=== PATIENT | male | born 1980 | race Caucasian/White ===

== ENCOUNTER 2018-06-13 09:34 | Outpatient (CLI) | payer BC ==
--- NOTE | 2018-06-13 13:04 | CT ---
CT ABDOMEN AND PELVIS WITHOUT CONTRAST: Comparison: None. History: Right sided plank and abdominal pain for two months. Technique: Multiple contiguous axial images were obtained in a CT of the abdomen and pelvis without c ontrast. Coronal reformats were performed. FINDINGS: There is a small amount of hyperdense material in the fundus of the gallbladder which could represent stones but is nonspecific. There is a 2.2 cm cyst in the liver near the dome. There are nonobstructi ng calcifications in the left kidney measuring up to 5 mm in size. No calcification is seen in either urinary or urinary bladder. The adrenal glands, spleen, and pancreas are unremarkable, although eval uation is limited without IV contrast. No free air, free fluid, or stranding changes are seen in the abdomen or pelvis. The large and small bowel are unremarkable. No abdominal or pelvic lymphadenopathy are seen. The visualized inferior thorax and abdominal wall soft tissues are unremarkable. The bones are unrema rkable. IMPRESSION: 1. Nonobstructing left renal calcifications. 2. Hepatic cysts. 3. Hyperdense material in the gallbladder could potentially represent gallstones. A gallbladder mass is also a possibility. A right upper quadrant abdominal ultrasound is recommended for further evaluat ion. POS: VAN
== END 2018-06-13 09:35 | disposition home or self-care (01) ==
LOC: SCSCT 09:34
PROVIDERS: ATTEND Urology
DX: N20.0 Calculus of kidney (principal); N28.89 Other specified disorders of kidney and ureter; K76.89 Other specified diseases of liver; R93.3 Abnormal findings on diagnostic imaging of other parts of digestive tract
CPT/HCPCS: 74176

== ENCOUNTER 2019-01-06 13:01 | Outpatient (CLI) | payer BC ==
--- NOTE | 2019-01-06 14:04 | ULT ---
ULTRASOUND THYROID: DATE: 01/06/2019 HISTORY: Follow-up thyroid nodule 38-year-old male COMPARISON: Prior ultrasounds of 05/08/2017, 03/30/2014, and 06/26/2012. FINDINGS: This study is: 0.3 cm Right lobe: 5.1 x 1.8 x 1.9 cm Left lobe: 4.8 x 2.6 x 2.4 cm At right lobe mid pole, there are 2 intermediate echogenicity nodules, abutting each other, each appr oximately 0.5 cm unchanged since 2012, and benign. Dominant the left midpole, there is a complex mass measuring 2.2 x 2.0 x 2.2 cm. Although no significant interval increase in size is visualized since 2017, there has been slight, sl ow interval growth since the older ultrasounds. Furthermore, there has been significant interval increase in the solid component, and the nodule is now approximately 75% solid. Furthermore, there paulson s been a significant interval increase in the number of small and tiny echogenic foci, representing calcifications. This is now a highly suspicious lesion. Ultrasound-guided fine-needle aspiration was performed in 2011, but it was indeterminate. Composition: Mixed solid and cystic: 1 point Echogenicity: Isoechoic: 1 point Shape: Wider than tall: 3 points Margin: Smooth: 0 points Echogenic foci: Punctate echogenic foci: 3 points. Total points: 8 TIRADS category 5: Highly suspicious At the left lower pole, there is a 0.9 cm cyst. IMPRESSION: 1.) TIRADS category 5: Highly suspicious 2) complex 2.2 cm mass in the left lobe interpolar region has developed highly suspicious characteris tics for differentiated thyroid cancer. 3) recommend either repeat fine-needle aspiration, ultrasound-guided, or surgical resection. Recommen d ENT consultation.
== END 2019-01-06 13:02 | disposition home or self-care (01) ==
LOC: SCSULT 13:01
PROVIDERS: ATTEND Family Medicine
DX: E04.1 Nontoxic single thyroid nodule (principal)
CPT/HCPCS: 76536

== ENCOUNTER 2019-01-21 10:12 | Observation (INO) | payer BC ==
[2019-01-20 12:16] VITALS: BMI 26.5
[2019-01-21] MEDS ORDERED: Midazolam HCl 2 mg/2 ml Vial ONE (12:40)
[2019-01-21] MEDS ORDERED: Fentanyl 250 MCG/5 ML VIAL ONE (12:40)
[2019-01-21] MEDS ORDERED: Lidocaine 1% w/Epinephrine 1:100K 20 ML VIAL ONE (12:44)
[2019-01-21] MEDS ORDERED: Bacitracin Zinc Ointment 30 gm TUBE ONE (14:10)
[2019-01-21] MEDS ORDERED: Bacitracin Zinc 1 Packet TOP PRN (15:45)
[2019-01-21] MEDS ORDERED: PACU-Morphine 4MG/ML VIAL SLOW IVP PRN (15:47)
[2019-01-21] MEDS ORDERED: HYDROmorphone 2 MG/ML VIAL SLOW IVP PRN (15:47)
[2019-01-21] MEDS ORDERED: Promethazine HCl 25 MG/ML VIAL SLOW IVP PRN (15:47)
[2019-01-21] MEDS ORDERED: Ondansetron HCl/PF 4 MG/2 ML Vial IVP PRN (15:47)
[2019-01-21] MEDS ORDERED: Promethazine HCl 25 MG/ML VIAL IM PRN ×2 (15:47→20:59)
[2019-01-21] MEDS ORDERED: Ondansetron PF 4 MG/2 ML Vial SLOW IVP PRN (15:47)
[2019-01-21] MEDS ORDERED: HYDROcodone/Acetaminophen 5/325 mg Tablet PO PRN (15:48)
[2019-01-21] MEDS ORDERED: Fentanyl 100 MCG/2 ML VIAL ONE ×2 (15:56→16:13)
[2019-01-21] MEDS ORDERED: ceFAZolin 1 GM/D5W 1 GM in Premix Bag 1 BAG IVPB SCH (16:00)
[2019-01-21] MEDS ORDERED: Acetaminophen 325 MG TAB PO PRN (17:28)
[2019-01-21] MEDS: HYDROcodone/Acetaminophen 5/325 mg Tablet PO PRN ×2 (17:54→22:17)
[2019-01-21] MEDS: Calcium Carbonate 500 MG TAB PO SCH (17:54)
[2019-01-21] MEDS: Sodium Chloride 0.45% 1,000 ML IV SCH (17:55)
[2019-01-21] MEDS ORDERED: Ketorolac Tromethamine 30 MG/ML VIAL IVP PRN (21:12)
[2019-01-21] MEDS ORDERED: Ketorolac Tromethamine 30 MG/ML VIAL IVP SCH (21:15)
[2019-01-21] MEDS: ceFAZolin 1 GM/D5W 1 GM in Premix Bag 1 BAG IVPB SCH (21:23)
[2019-01-22] MEDS: Sodium Chloride 0.45% 1,000 ML IV SCH ×2 (04:14→14:03)
[2019-01-22] MEDS: ceFAZolin 1 GM/D5W 1 GM in Premix Bag 1 BAG IVPB SCH ×2 (05:39→13:55)
[2019-01-22] MEDS ORDERED: Calcitriol 0.25 MCG CAP PO SCH (09:00)
[2019-01-22] MEDS ORDERED: Fish Oil 1,000 MG CAP PO SCH (09:00)
[2019-01-22] MEDS ORDERED: Fluticasone Propionate Nasal Spray 16 gm Bottle NASAL SCH (09:00)
[2019-01-22] MEDS: HYDROcodone/Acetaminophen 5/325 mg Tablet PO PRN (09:18)
[2019-01-22] MEDS: Calcium Carbonate 500 MG TAB PO SCH ×2 (09:27→13:54)
[2019-01-22 15:14] VITALS: BP 122/76; TEMP 98.1
--- NOTE | 2019-01-23 08:22 | OP ---
DATE OF PROCEDURE: 01/21/2019 PREOPERATIVE DIAGNOSIS: Left thyroid mass. POSTOPERATIVE DIAGNOSIS: Left papillary thyroid carcinoma. ESTIMATED BLOOD LOSS: 20 mL. COMPLICATIONS: None. ANESTHESIA: GETA. PROCEDURE PERFORMED: Total thyroidectomy with intraoperative laryngeal nerve monitoring. DESCRIPTION OF PROCEDURE: The patient was taken to the operating room, placed supine on the table. General endotracheal anesthesia was obtained by the anesthesia staff. The direct laryngoscope was then used to confirm that the laryngeal electrodes were between the vocal cords bilaterally. Following this, the tube was secured to the midline of the upper lip and a shoulder roll was placed. The laryngeal monitor was then turned on and nurse was designated to monitor for alerts throughout the procedure. Following this, the patient was prepped and draped in standard surgical fashion. 1% lidocaine with 1:100,000 epinephrine was injected into a valerie-shaped area overlying the thyroid gland. Following this, an incision was made approximately 2 cm above the sternal notch. It was carried through skin and subcuticular tissue and the platysmal layer bilaterally. Following this, subplatysmal flaps were elevated superiorly to the level of the thyroid notch and inferiorly to the level of the clavicles. Following this, the strap muscles were in the midline and the thyroid gland was exposed. A firm 2 cm nodule in the left thyroid gland was easily palpated. Dissection was then carried medially adjacent to the thyroid capsule. The middle thyroid vein was suture ligated. The gland was displaced inferiorly and the superior thyroid vascular pedicle was then suture ligated immediately adjacent to the left thyroid lobe. Inferiorly, the gland was then retracted medially and the recurrent laryngeal nerve was identified and protected. As the gland was freed from this area, the inferior thyroid artery was suture ligated. The inferior parathyroid glands were identified and were from the thyroid specimen. Following this, the thyroid attachments to the trachea and Jiménez's ligaments were then transected. The left lobe was then sent for frozen section analysis, which confirmed papillary thyroid carcinoma. Following this, a similar procedure was performed on the right side as the gland was then retracted and the middle thyroid vein on the right side was suture ligated. The superior vascular pedicle was suture ligated immediately adjacent to the right thyroid lobe and the lobe was displaced medially. The right recurrent laryngeal nerve was identified and was protected as the right thyroid lobe was removed from this area. The inferior thyroid artery on the right was suture ligated. Inferior parathyroids on the right were identified and were protected. Following this, the right thyroid lobe was removed from its attachments to the trachea and was removed from the patient's body. There was no further lymph nodes identified in the central compartment of the neck or lateral compartment of the neck. Following this, wound was irrigated. A drain was placed. Monocryl stitches were used to reapproximate the strap muscles and platysma layer and subcuticular layers. Dermabond was placed on the skin. The patient tolerated the procedure well. Job ID: [id number]
== END 2019-01-22 16:20 | disposition home or self-care (01) ==
LOC: SDC 10:12 → SURG A 17:06
PROVIDERS: ADMIT Otolaryngology Plastic Surgery within the Head & Neck; ATTEND Otolaryngology Plastic Surgery within the Head & Neck
PROC: 0GTG0ZZ Resection of Left Thyroid Gland Lobe, Open Approach (ICD-10-PCS; principal; 2019-01-22)
PROC: 0GTH0ZZ Resection of Right Thyroid Gland Lobe, Open Approach (ICD-10-PCS; 2019-01-22)
PROC: 07B20ZZ Excision of Left Neck Lymphatic, Open Approach (ICD-10-PCS; 2019-01-22)
PROC: 07B10ZZ Excision of Right Neck Lymphatic, Open Approach (ICD-10-PCS; 2019-01-22)
DX: C73 Malignant neoplasm of thyroid gland (principal); C77.0 Secondary and unspecified malignant neoplasm of lymph nodes of head, face and neck; K21.9 Gastro-esophageal reflux disease without esophagitis; Z83.49 Family history of other endocrine, nutritional and metabolic diseases; Z79.51 Long term (current) use of inhaled steroids; Z79.899 Other long term (current) drug therapy
CPT/HCPCS: 36415; 82310; 88307; 88331; 88334; 96361; 96365; 96366; 96375; G0378; J0690; J1885; J2001; J2250; J2405; J2550; J3010

== ENCOUNTER 2019-03-02 12:40 | Outpatient (CLI) | payer BC ==
--- NOTE | 2019-03-02 15:35 | NM ---
NUCLEAR MEDICINE THYROID ABLATION THERAPY: HISTORY: Malignant neoplasm of thyroid gland. PROCEDURE: After discussing the risks, benefits, alternatives, and radiation precaution issues with the patient, verbal and written consent were obtained for radioiodine ablation therapy. The patient verbalized u nderstanding. He was treated with 98 millicuries of iodine-131 orally without complications. He wu l follow up with Dr. Burgess. POS: OFF
== END 2019-03-02 12:41 | disposition home or self-care (01) ==
LOC: NM 12:40
PROVIDERS: ATTEND Internal Medicine Endocrinology, Diabetes & Metabolism
DX: C73 Malignant neoplasm of thyroid gland (principal)
CPT/HCPCS: 79005; A9517

== ENCOUNTER 2019-03-13 12:46 | Outpatient (CLI) | payer BC ==
--- NOTE | 2019-03-13 14:10 | NM ---
WHOLE BODY RADIOIODINE SCAN AFTER ABLATION THERAPY: HISTORY: malignant neoplasm of thyroid gland treated with 98 mCi of iodine-131 on 03/02/2019. FINDINGS: There is focally increased uptake in the neck/thyroid bed consistent with remnant. No other abnormal areas of tracer localization are seen. Physiologic uptake is noted in the nasopharynx and salivary glands. IMPRESSION: No evidence of distant metastasis.
== END 2019-03-13 12:47 | disposition home or self-care (01) ==
LOC: NM 12:46
PROVIDERS: ATTEND Internal Medicine Endocrinology, Diabetes & Metabolism
DX: C73 Malignant neoplasm of thyroid gland (principal)
CPT/HCPCS: 78018